=== PATIENT | male | born 1975 | race Caucasian/White ===

== ENCOUNTER 2020-08-20 10:34 | Outpatient (REF) | payer BC, SELFPAY ==
[2020-08-20 11:47] LABS: Alanine Aminotransferase 33 U/L (0-40); Albumin Level 4.8 g/dL (3.5-5.0); Alkaline Phosphatase 85 U/L (39-117); Anion Gap 16 (12-20); Aspartate Amino Transferase 20 U/L (5-37); Bilirubin Total 0.5 mg/dL (0.0-1.0); Blood Urea Nitrogen 15 mg/dL (9-16); Calcium 8.9 mg/dL (8.4-10.2); Carbon Dioxide 26 mmol/L (22-29); Chloride 101 mmol/L (96-108); Cholesterol 265 mg/dL; Estimated Glomerular Filt Rate > 60; Glucose Fasting 129 mg/dL (60-99); HDL Cholesterol 43 mg/dL; Potassium 4.5 mmol/l (3.3-5.1); Sodium 138 mmol/L (135-145); Total Protein 7.6 g/dL (6.5-8.0); Triglycerides 459 mg/dL
[2020-08-20 11:55] LABS: TSH reflex Free T4 2.22 mIU/mL (0.32-4.0)
== END 2020-08-20 10:35 | disposition home or self-care (01) ==
LOC: HO.HMGCLDS 10:34
PROVIDERS: PCP Nurse Practitioner Family; Visit Provider Nurse Practitioner Family
DX: Z00.00 Encounter for general adult medical examination without abnormal findings (principal); R73.01 Impaired fasting glucose
CPT/HCPCS: 80053; 80061; 84443

== ENCOUNTER 2020-10-30 12:11 | Outpatient (REF) | payer BC, SELFPAY ==
[2020-10-30 14:34] LABS: Estimated Average Glucose 123 mg/dL; Hemoglobin A1c % 5.9 %
== END 2020-10-30 12:12 | disposition home or self-care (01) ==
LOC: HO.HMGCLDS 12:11
PROVIDERS: PCP Nurse Practitioner Family; Visit Provider Nurse Practitioner Family
DX: R73.01 Impaired fasting glucose (principal)
CPT/HCPCS: 36415; 83036

== ENCOUNTER 2021-02-05 08:38 | Outpatient (REF) | payer BC, SELFPAY ==
[2021-02-05 11:52] LABS: Alanine Aminotransferase 26 U/L (0-40); Albumin Level 4.6 g/dL (3.5-5.0); Alkaline Phosphatase 79 U/L (39-117); Anion Gap 14 (12-20); Aspartate Amino Transferase 17 U/L (5-37); Bilirubin Total 0.7 mg/dL (0.0-1.0); Blood Urea Nitrogen 20 mg/dL (9-16); Calcium 8.8 mg/dL (8.4-10.2); Carbon Dioxide 26 mmol/L (22-29); Chloride 105 mmol/L (96-108); Cholesterol 127 mg/dL; Estimated Glomerular Filt Rate > 60; Glucose Fasting 139 mg/dL (60-99); HDL Cholesterol 34 mg/dL; LDL Cholesterol Calculated 58 mg/dl; Potassium 4.5 mmol/L (3.3-5.1); Sodium 140 mmol/L (135-145); Triglycerides 176 mg/dL
[2021-02-05 12:15] LABS: TSH reflex Free T4 2.08 uIU/mL (0.32-4.0)
== END 2021-02-05 08:39 | disposition home or self-care (01) ==
LOC: HO.HMGCLDS 08:38
PROVIDERS: PCP Nurse Practitioner Family; Visit Provider Nurse Practitioner Family
DX: E78.5 Hyperlipidemia, unspecified (principal); R73.01 Impaired fasting glucose; I25.10 Atherosclerotic heart disease of native coronary artery without angina pectoris
CPT/HCPCS: 36415; 80053; 80061; 84443

== ENCOUNTER 2021-03-07 10:45 | Outpatient (REF) | payer BC, SELFPAY ==
[2021-03-07 15:46] LABS: Estimated Average Glucose 131 mg/dL; Hemoglobin A1c % 6.2 %
== END 2021-03-07 10:46 | disposition home or self-care (01) ==
LOC: HO.HMGCLDS 10:45
PROVIDERS: PCP Nurse Practitioner Family; Visit Provider Nurse Practitioner Family
DX: R73.01 Impaired fasting glucose (principal)
CPT/HCPCS: 36415; 83036

== ENCOUNTER → 2021-05-13 10:09 | Outpatient (BNVA) | payer BC, SELFPAY | PROVIDERS: PCP Nurse Practitioner Family; Referring Provider Nurse Practitioner Family; Visit Provider Nurse Practitioner Family ==

== ENCOUNTER → 2021-05-28 15:48 | Outpatient (REF) | payer BC, SELFPAY | LOC: HO.SL 15:48 | PROVIDERS: PCP Nurse Practitioner Family; Visit Provider Nurse Practitioner Family | DX: G47.33 Obstructive sleep apnea (adult) (pediatric) (principal) | CPT/HCPCS: 95806 ==

== ENCOUNTER → 2021-08-05 21:44 | Outpatient (REF) | payer BC, SELFPAY | LOC: HO.SL 21:44 | PROVIDERS: Visit Provider Nurse Practitioner Family | DX: G47.33 Obstructive sleep apnea (adult) (pediatric) (principal) | CPT/HCPCS: 95811 ==

== ENCOUNTER 2022-01-03 09:09 | Outpatient (REF) | payer BC, SELFPAY ==
[2022-01-03 11:28] LABS: Appearance Urine CLOUDY; Color Urine YELLOW; Glucose Urine UA 250 MG/DL (NEG); Leukocyte Esterase Urine NEG (NEG); Nitrite Urine NEG (NEG); Specific Gravity - Urine >= 1.030 (1.005-1.025); Urine Blood NEG (NEG); Urine Ketones NEG (NEG); Urine Protein NEG (NEG-TRACE)
[2022-01-03 11:36] LABS: Alanine Aminotransferase 40 U/L (0-40); Albumin Level 4.7 g/dL (3.5-5.0); Alkaline Phosphatase 92 U/L (39-117); Anion Gap 15 (12-20); Aspartate Amino Transferase 20 U/L (5-37); Bilirubin Total 0.5 mg/dL (0.0-1.0); Blood Urea Nitrogen 18 mg/dL (9-16); Calcium 9.6 mg/dL (8.4-10.2); Carbon Dioxide 25 mmol/L (22-29); Chloride 104 mmol/L (96-108); Cholesterol 185 mg/dL; Estimated Glomerular Filt Rate > 60; Glucose Fasting 147 mg/dL (60-99); HDL Cholesterol 42 mg/dL; LDL Cholesterol Calculated 115 mg/dl; Potassium 4.8 mmol/L (3.3-5.1); Sodium 139 mmol/L (135-145); Total Protein 7.7 g/dL (6.5-8.0); Triglycerides 141 mg/dL
[2022-01-03 11:46] LABS: TSH reflex Free T4 3.45 uIU/mL (0.32-4.0)
[2022-01-08 19:30] LABS: Testosterone, Free 61.7 pg/mL (35.0-155.0); Testosterone, Total 215 ng/dL (250-1100)
== END 2022-01-03 09:10 | disposition home or self-care (01) ==
LOC: HO.HMGCLDS 09:09
PROVIDERS: Visit Provider Nurse Practitioner Family
DX: Z00.00 Encounter for general adult medical examination without abnormal findings (principal); N52.9 Male erectile dysfunction, unspecified
CPT/HCPCS: 36415; 80053; 80061; 81003; 84402; 84403; 84443

== ENCOUNTER 2022-04-16 06:15 | Outpatient (REF) | payer BC, SELFPAY ==
[2022-04-16 11:38] LABS: Estimated Average Glucose 126 mg/dL
[2022-04-16 12:12] LABS: Cholesterol 146 mg/dL; HDL Cholesterol 37 mg/dL; LDL Cholesterol Calculated 53 mg/dl; Triglycerides 284 mg/dL
== END 2022-04-16 06:16 | disposition home or self-care (01) ==
LOC: HO.HMGCLDS 06:15
PROVIDERS: PCP Nurse Practitioner Family; Visit Provider Nurse Practitioner Family
DX: E11.9 Type 2 diabetes mellitus without complications (principal)
CPT/HCPCS: 36415; 80061; 83036

== ENCOUNTER 2022-06-18 06:20 | Outpatient (REF) | payer BC, SELFPAY ==
[2022-06-20 07:06] LABS: Follicle Stimulating Hormone 3.8 mIU/mL (1.6-8.0); Lutenizing Hormone 2.5 mIU/mL (1.5-9.3)
[2022-06-28 12:42] LABS: Testosterone, Total 246 ng/dL (250-1100)
== END 2022-06-18 06:21 | disposition home or self-care (01) ==
LOC: HO.HMGCLDS 06:20
PROVIDERS: PCP Nurse Practitioner Family; Visit Provider Urology
DX: E29.1 Testicular hypofunction (principal); R79.89 Other specified abnormal findings of blood chemistry
CPT/HCPCS: 36415; 83001; 83002; 84402; 84403

== ENCOUNTER 2022-08-28 06:10 | Outpatient (REF) | payer BC, SELFPAY ==
[2022-08-28 12:02] LABS: Estimated Average Glucose 128 mg/dL; Hemoglobin A1c % 6.1 %
[2022-09-04 15:45] LABS: Testosterone, Free 56.9 pg/mL (35.0-155.0); Testosterone, Total 201 ng/dL (250-1100)
== END 2022-08-28 06:11 | disposition home or self-care (01) ==
LOC: HO.HMGCLDS 06:10
PROVIDERS: PCP Nurse Practitioner Family; Visit Provider Urology
DX: E29.1 Testicular hypofunction (principal); R79.89 Other specified abnormal findings of blood chemistry; E11.9 Type 2 diabetes mellitus without complications
CPT/HCPCS: 36415; 83036; 84402; 84403

== ENCOUNTER → 2022-09-01 11:13 | Outpatient (BNVA) | payer BC, SELFPAY | PROVIDERS: PCP Nurse Practitioner Family; Visit Provider Urology | DX: Z13.89 Encounter for screening for other disorder (principal) ==

== ENCOUNTER 2023-01-20 06:12 | Outpatient (REF) | payer BC, SELFPAY ==
[2023-01-20 11:10] LABS: MANUAL DIFF FLAG NO
[2023-01-20 11:23] LABS: Appearance Urine Turbid; Color Urine Yellow; Glucose Urine UA Negative (Negative); Leukocyte Esterase Urine Trace (Negative); Nitrite Urine Negative (Negative); PH 5.5 (5.0-9.0); Specific Gravity - Urine 1.025 (1.005-1.025); UMIC TRIGGER UACC YES; Urine Blood Negative (Negative); Urine Ketones Negative (Negative); Urine Protein Trace mg/dL (Neg-Trace)
[2023-01-20 11:35] LABS: Basophils Percent Auto 0.3 % (0-2); Eosinophils Absolute Auto 0.1 X10*3/uL (0.0-0.4); Eosinophils Percent Auto 1.3 % (0-4); Hemoglobin 15.1 g/dl (14.0-18.0); Imm Gran Abs Auto 0.04 X10*3/uL (0.00-0.03); Imm Gran Pct Auto 0.5 % (0.0-0.4); Lymphocytes Percent Auto 34.8 % (20-40); Mean Corpuscular HGB Conc 32.8 g/dl (31.0-36.0); Mean Corpuscular Hemoglobin 32.1 pg (27.0-33.0); Mean Corpuscular Volume 97.7 fL (80.0-98.0); Monocytes Absolute Auto 0.6 X10*3/uL (0.1-1.2); Monocytes Percent Auto 6.7 % (2-11); Neutrophils Absolute Auto 4.9 x10*3/uL (2.0-8.3); Neutrophils Percent Auto 56.4 % (45-73); Platelet Count 232 X10*3/uL (160-400); Red Blood Count 4.71 X10*6/uL (4.60-5.80); White Blood Count 8.6 X10*3/uL (4.8-10.8)
[2023-01-20 11:42] LABS: Bacteria Urine None Seen (None Seen); Calcium Oxalate Crystals Urine Present; Hyaline Casts Urine 0-2 /LPF (0-2); Squamous Epithelial Cell Urine 0-2 /HPF (0-2); WBC Urine 0-5 /HPF (0-5)
[2023-01-20 11:46] LABS: Alanine Aminotransferase 32 U/L (0-40); Albumin Level 4.3 g/dL (3.5-5.0); Alkaline Phosphatase 84 U/L (39-117); Anion Gap 16 (12-20); Aspartate Amino Transferase 17 U/L (5-37); Blood Urea Nitrogen 17 mg/dL (9-16); Calcium 9.2 mg/dL (8.4-10.2); Carbon Dioxide 24 mmol/L (22-29); Chloride 105 mmol/L (96-108); Cholesterol 186 mg/dL; Estimated Glomerular Filt Rate > 60; Glucose Fasting 150 mg/dL (60-99); HDL Cholesterol 41 mg/dL; LDL Cholesterol Calculated 91 mg/dl; Potassium 4.4 mmol/L (3.3-5.1); Sodium 141 mmol/L (135-145); Total Protein 6.8 g/dL (6.5-8.0); Triglycerides 270 mg/dL
[2023-01-20 12:04] LABS: TSH reflex Free T4 2.31 uIU/mL (0.32-4.0)
[2023-01-20 12:05] LABS: Creatinine Urine 215.11 mg/dL; Microalbum/Creatinine Ratio Ur 22.7 ug/mg cr
[2023-01-27 15:42] LABS: Testosterone, Free 57.7 pg/mL (35.0-155.0); Testosterone, Total 228 ng/dL (250-1100)
== END 2023-01-20 06:13 | disposition home or self-care (01) ==
LOC: HO.HMGCLDS 06:12
PROVIDERS: Absent Provider Urology; PCP Nurse Practitioner Family; Visit Provider Nurse Practitioner Family
DX: Z00.00 Encounter for general adult medical examination without abnormal findings (principal); E11.69 Type 2 diabetes mellitus with other specified complication; N52.1 Erectile dysfunction due to diseases classified elsewhere; R79.89 Other specified abnormal findings of blood chemistry
CPT/HCPCS: 36415; 80053; 80061; 81001; 82043; 84402; 84403; 84443; 85025

== ENCOUNTER → 2023-01-29 10:56 | Outpatient (BNVA) | payer BC, SELFPAY | PROVIDERS: PCP Nurse Practitioner Family; Visit Provider Urology ==

== ENCOUNTER 2023-03-03 15:36 | Outpatient (AMB) | payer BC, SELFPAY ==
--- NOTE | 2023-03-03 15:53 | A.OFFPC_ITS ---
Vital Signs 03/03/23 15:54 Height 5 ft 7 in Weight 197 lb 4 oz BMI 30.9 BP 108/72 Blood Pressure Location Rt brachial Position Sitting Pulse 73 Pulse Source Pulse Oximeter Pulse Oximetry (%) 95 Oxygen Delivery Method Room Air Intake Visit Reasons: 6 month follow up Allergies No Known Allergies Allergy (Verified 03/03/23 15:56) Medication List - Last Reconciled 03/03/23 by SASHA Mott- aspirin 81 mg PO DAILY bisacodyl (Dulcolax (bisacodyl)) 10 mg (2 x 5 mg) PO ONCE 1 day blood sugar diagnostic (MD InsiderTouch Ultra Test strips) Check blood sugar fasting in the morning and one other time during the day. blood-glucose meter (MD InsiderTouch Ultra2 Meter) Check blood sugar fasting in the morning and one other time during the day. icosapent ethyl (Vascepa) 2 grams (2 x 1 gram) PO BID 90 days isosorbide mononitrate ER 30 mg PO DAILY 90 days lancets Check blood sugar fasting in the morning and one other time during the day. lisinopril 2.5 mg PO DAILY 90 days metformin ER 500 mg PO DAILY metoprolol tartrate 50 mg PO BID 90 days multivitamin (Daily Multi-Vitamin tablet) 1 tab PO DAILY polyethylene glycol 3350 (Miralax) 238 grams PO ONCE rosuvastatin 40 mg PO DAILY 90 days tadalafil (Cialis) 5 mg PO DAILY 90 days Tobacco use date assessed: 03/03/23 Dental Screening Dental Screen Date: 03/03/23 Did you have a dental visit in the last 12 months?: Yes Did you have a dental problem in the last 6 months where you did not have access to dental care?: No Was dental information given to patient?: Patient has dentist HPI 6 month follow up HPI Details Pt is a diabetic, on an JEREMIAH and a statin. A1c in office today is 5.7. Microalbumin is up to date. Denies polyuria, polydipsia, and neuropathy. Pt denies any signs and symptoms of hypoglycemia and does know how to correct it. Pt's microalbumin was slightly elevated, will refer to nephrology. Pt's blood pressure is lower so I will not increase his lisinopril. Pt c/o left foot pain, i fell . Will order xr. reports full ROM of foot/ankle. colon screen is scheduled [facility] Medical History (Updated 03/03/23 @ 16:30 by SUZY Mott) Anxiety CAD (coronary artery disease) Diabetes Dyslipidemia Surgical History H/O heart artery stent History of eye surgery Stented coronary artery Family History Father CVD (cardiovascular disease) Cancer of prostate Mother CVD (cardiovascular disease) Breast cancer Brother Testicular cancer Paternal Uncle Substance use disorder Social History Housing: House Alcohol intake: current Alcohol intake frequency: a few times a month Patient Tobacco Use Status: Current everyday Tobacco user Cigarettes Per Day: 10 e-Cigarette/Vaping Use: Never Used Second Hand Smoke Exposure: No service: No Current occupational status: employed Current occupation: [employer] Current occupational exposures/hazards: No Cognitive needs: No Hearing needs: No Vision needs: No Questionnaire Thrive Questionnaire Date Thrive assessed: 09/09/22 PATRICK-7 AMB Questionnaire PATRICK-7 Date PATRICK - 7 assessed: 09/09/22 Source: Developed by Drs. Ivan Mackey, Marcia Brewer, Niranjan Herbert and colleagues, with an educational margarito from [employer]. Review of Systems Const Reports as per HPI Physical exam (Primary Care) Vital Signs: Last Vital Signs Pulse 73 03/03/23 15:54 BP 108/72 03/03/23 15:54 Pulse Ox 95 03/03/23 15:54 Oxygen Delivery Method Room Air 03/03/23 15:54 BMI result Body Mass Index 30.9 Tobacco/Smoking Status: Tobacco use Status Tobacco use date assessed 03/03/23 03/03/23 15:58 Patient Tobacco Use Status Current everyday Tobacco 03/03/23 15:53 e-Cigarette/Vaping Use Never Used 03/03/23 15:53 Thrive Assessment: Date of Thrive Assessment Date Thrive assessed 09/09/22 03/03/23 15:53 Const General: cooperative Nutritional Appearance: obese Orientation/consciousness: patient oriented x3 Resp Effort & Inspection: normal respiratory effort Auscultation: clear to auscultation bilaterally Cardio Rate: regular rate Rhythm: regular rhythm Heart sounds: S1 normal heart sound present and S2 normal heart sound present Neuro General: patient oriented x3 Extrem Other: bilat feet: + sensation with use of monofilament. faint erythema noted to dorsal left foot. no pain with eversion, inversion, dorsi flexion-plantar flexion against resistance Psych Appearance: grossly normal Mental Status: mental status grossly normal Speech and movement: Normal speech and movement present Affect: normal affect Attitude: cooperative Thought process: Normal thought process present Thought content: Normal thought content present Insight: Good insight present (Psych) Judgement: Good judgement present (Psych) Results AMB Hemoglobin A1c AMB Hemoglobin A1c 5.7 % Last Edit by Ceci Álvarez CMA on 03/03/23 16: 27 Results Reviewed Results Reviewed: Laboratory Last Values Hgb A1c (Clinic) 5.7 % (4.0-6.0) 03/03/23 16:27 Assessment and Plan Assessment & Plan (1) Left foot pain: Code(s): M79.672 - Pain in left foot Plan: XR ordered (2) Microalbuminuria: Code(s): R80.9 - Proteinuria, unspecified Plan: Referred to nephrology (3) Diabetes: Code(s): E11.9 - Type 2 diabetes mellitus without complications (4) Physical exam: Code(s): Z00.00 - Encounter for general adult medical examination without abnormal findings Plan The patient agreed to the use of a medical billing associate for this encounter. Scribed for CLARI Butt by Anna Bustamante medical billing associate, on 03/03/2023 at 16:05 EST. Orders: Orders XR foot LT 2V Today M79.672 - Pain in left foot Complete Blood Count Auto Diff Today E11.9 - Type 2 diabetes mellitus without complications, Z00.00 - Encounter for general adult medical examination without abnormal findings Comprehensive [place]. Panel Fast Today E11.9 - Type 2 diabetes mellitus without complications, Z00.00 - Encounter for general adult medical examination without abnormal findings TSH reflex Free T4 Today E11.9 - Type 2 diabetes mellitus without complications, Z00.00 - Encounter for general adult medical examination without abnormal findings UA CC w/rflx Micro + Cult Today E11.9 - Type 2 diabetes mellitus without complications, Z00.00 - Encounter for general adult medical examination without abnormal findings Lipid Panel Today E11.9 - Type 2 diabetes mellitus without complications, Z00.00 - Encounter for general adult medical examination without abnormal findings Hemoglobin A1c Today E11.9 - Type 2 diabetes mellitus without complications, Z00.00 - Encounter for general adult medical examination without abnormal findings AMB Hemoglobin A1c Today E11.9 - Type 2 diabetes mellitus without complications, R80.9 - Proteinuria, unspecified Referrals Nephrology Referral R80.9 - Proteinuria, unspecified Medications: New fenofibrate 120 mg PO DAILY 90 tabs 0RF Coding Level of Care Code Est Pt Level 3 (10609) Diagnoses Left foot pain M79.672 Microalbuminuria R80.9 Diabetes E11.9 Physical exam Z00.00
[2023-03-03 15:54] VITALS: BP 108/72; PULSE 73; O2SAT 95; BMI 30.9
== END 2023-03-03 16:34 | disposition home or self-care (01) ==
PROVIDERS: Visit Provider Nurse Practitioner Family
DX: M79.672 Pain in left foot (principal); R80.9 Proteinuria, unspecified; E11.9 Type 2 diabetes mellitus without complications; Z00.00 Encounter for general adult medical examination without abnormal findings
CPT/HCPCS: 83036; 99213

== ENCOUNTER 2023-03-15 08:29 | Day surgery (SDC) | payer BC, SELFPAY ==
--- NOTE | 2023-03-12 13:40 | HO.ANESPROP2 ---
Documented by User: Frannie Rust NP 03/12/23 13:47 HPI - Anesthesia Eval Consult details Narrative: 47yo M for Colonoscopy Cardiac optimized (CAD with stent 2018) [facility] Active Problems Active Problems: All Active Problems (Updated 03/03/23 @ 16:30 by SASHA MottLORE) Diabetes (Acute) Microalbuminuria (Acute) Left foot pain (Acute) Screening for colon cancer (Acute) Low testosterone (Acute) Newly diagnosed diabetes (Acute) Erectile dysfunction (Acute) Severe obstructive sleep apnea (Acute) Sleep disorder (Acute) Elevated fasting blood sugar (Acute) Dyslipidemia (Acute) CAD (coronary artery disease) (Acute) Sleep apnea (Acute) Elevated fasting blood sugar (Acute) Physical exam (Acute) Past Medical History Medical History (Updated 03/03/23 @ 16:30 by SUZY Mott) Anxiety CAD (coronary artery disease) Diabetes Dyslipidemia Family History Family History Father CVD (cardiovascular disease) Cancer of prostate Mother CVD (cardiovascular disease) Breast cancer Brother Testicular cancer Paternal Uncle Substance use disorder Surgical History Surgical History H/O heart artery stent History of eye surgery Stented coronary artery Social History Social History Housing: House Alcohol intake: current Alcohol intake frequency: a few times a month Patient Tobacco Use Status: Current everyday Tobacco user Cigarettes Per Day: 10 e-Cigarette/Vaping Use: Never Used Second Hand Smoke Exposure: No Advance Directives: No Advance Directives Information Provided: Yes service: No Current occupational status: employed Current occupation: [employer] Current occupational exposures/hazards: No Cognitive needs: No Hearing needs: No Vision needs: No Meds Allergies Allergy/AdvReac Type Severity Reaction Status Date / Time No Known Allergies Allergy Verified 03/03/23 15:56 Home Medications Medication Instructions Recorded Confirmed Last Taken Type aspirin 81 mg tablet,delayed 81 mg PO DAILY 07/31/20 03/03/23 Unknown History release multivitamin (Daily Multi-Vitamin 1 tab PO DAILY 01/26/22 03/03/23 Unknown History tablet) Exam Exam Date and Time: March 12, 2023 1340 Pertinent Lab Results Pertinent Lab Results: Laboratory Tests 01/20/23 01/20/23 06:37 06:37 WBC 8.6 Hgb 15.1 Hct 46.0 Plt Count 232 Sodium 141 Potassium 4.4 Chloride 105 Carbon Dioxide 24 BUN 17 H Creatinine 0.78 Assessment and Plan Assessment Anesthesia Assessment: Chart Reviewed Documented by User: Peter Kothari MD 03/15/23 09:45 [facility] Past Medical History Medical History (Updated 03/03/23 @ 16:30 by SUZY Mott) Anxiety CAD (coronary artery disease) Diabetes Dyslipidemia Family History Family History Father CVD (cardiovascular disease) Cancer of prostate Mother CVD (cardiovascular disease) Breast cancer Brother Testicular cancer Paternal Uncle Substance use disorder Family history of problems with anesthesia: No Surgical History Surgical History H/O heart artery stent History of eye surgery Stented coronary artery History of Problems with Anesthesia: No Social History Social History Housing: House Alcohol intake: current Alcohol intake frequency: a few times a month Patient Tobacco Use Status: Current everyday Tobacco user Cigarettes Per Day: 10 e-Cigarette/Vaping Use: Never Used Second Hand Smoke Exposure: No Advance Directives: No Advance Directives Information Provided: Yes service: No Current occupational status: employed Current occupation: [employer] Current occupational exposures/hazards: No Cognitive needs: No Hearing needs: No Vision needs: No Meds Allergies Allergy/AdvReac Type Severity Reaction Status Date / Time No Known Allergies Allergy Verified 03/03/23 15:56 Home Medications Medication Instructions Recorded Confirmed Last Taken Type aspirin 81 mg tablet,delayed 81 mg PO DAILY 07/31/20 03/03/23 Unknown History release multivitamin (Daily Multi-Vitamin 1 tab PO DAILY 01/26/22 03/03/23 Unknown History tablet) Exam Airway Mallampati Class: III TM Dist: >3cm Neck ROM: Limited Heart: rrr Lungs: cta Assessment and Plan Assessment Anesthesia Assessment: Anesthesia Plan Discussed Final Anesthetic Review Family History of Problems with Anesthesia: No History of Problems with Anesthesia: No NPO: Yes ASA Class: III Final Preanesthetic Review: No Changes in Pt Med Stat, Meds/Allgs Chart Reviewed, Consent Obtained/Reviewed and Anes Risks/Benef Reviewed Patient Risk: Intermediate Anesthetic Plan Anesthetic Plan: MAC: and Agree w/ Assess. and Plan Disposition: Standard PACU
--- NOTE | 2023-03-15 10:22 | MHC.SHP ---
Pre-Procedural Eval Section A Date of Service: 03/15/23 The patient is an INPATIENT: No The History & Physical has been completed within 30 days and I have reviewed it.: No Section B Chief Complaint: Screening Relevant Family History (Specify if Yes): No Relevant Social History: Tobacco Use Present Medications: see Short Stay Collaborative assessment Medical History: Significant History (Anxiety CAD (coronary artery disease) Dyslipidemia) History of Previous Operations: Relevant previous surgery/procedure and date(s) (H/O heart artery stent History of eye surgery Stented coronary artery) Allergies: Allergies Allergy/AdvReac Type Severity Reaction Status Date / Time No Known Allergies Allergy Verified 03/03/23 15:56 Review of Systems Sugical H&P ROS: Negative: Constitution, Cardiovascular, Respiratory and Gastrointestinal Exam Surgical H&P Exam: Normal: Heart, Normal: Lungs, Normal: Extremities and Normal: Abdomen Plan Diagnosis/Plan: Unchanged I have reviewed the history and physical and performed a pertinent physical examination on my patient. No changes have occurred unless specified. Time Spent With Patient Time: Total time managing care of this patient today ____ minutes.
[2023-03-15 10:35] VITALS: BMI 30.5
[2023-03-15 10:48] VITALS: BP 108/70; PULSE 63; RESP 16; TEMP 36.6; O2SAT 96
[2023-03-15] MEDS: Lactated Ringers 1,000 ML 100 ML IVCONT (10:59)
--- NOTE | 2023-03-15 11:11 | P.OP_ITS ---
Operative Note Operative Note Date of Service: 03/15/23 Narrative: COLONOSCOPY TILL CECUM WITH BIOPSIES Pre-op diagnosis: colon cancer screening (1st colonoscopy) Post-op diagnosis:? colon polyps, diverticulosis, hemorrhoids Endoscopist:? Laurel Yates MD Anesthesia:?MAC Consent: Indications for the procedure and potential complications of bleeding, perforation, reaction to medications and missed diagnosis were discussed with the patient and informed consent was obtained. Instrument: Olympus PCF H 190 L variable stiffness pediatric colonoscope Monitoring: Vital signs and clinical assessment, intermittent blood pressure monitoring, continuous EKG monitoring, Pulse oximetry and Carbon Dioxide monitoring were done throughout the procedure. Please see anesthesia flowsheet. Colon withdrawl time was 11 minutes. Procedure: The patient was placed in the left lateral decubitis position and pre-procedure medications were administered. After a digital rectal examination of the ano-rectum, the video colonoscope was inserted into the rectum and advanced through the colon to the cecum. The colonoscope was slowly withdrawn in a retrograde panoramic fashion and the colon mucosa was carefully examined including a retroflexed view of the rectum. Findings and interventions are described below. Procedure Difficulty: Without difficulty Findings: Terminal Ileum: Not evaluated Cecum: Normal Ascending Colon: Normal Transverse Colon: Normal Descending Colon: Moderate diverticulosis Sigmoid Colon: Moderate diverticulosis Rectum: Two 3-4 mm diminutive appearing polyps - biopsied Ano-rectum: Small internal hemorrhoids Colon preparation: Excellent Impression and Post Procedure Diagnosis: Colonoscopy Findings: Two diminutive appearing polyps - biopsied Moderate diverticulosis seen in the left colon Small hemorrhoids on retroflexed exam. Plan: Await pathology results Patient has an appointment on 03/29/23 in the GI Clinic with Jennifer Martin FNP- [facility]. Repeat Colonoscopy interval based on path results - in 5 years if polyps are adenomatous and 10 years if polyps are hyperplastic. Above findings were reviewed with the patient and colon polyps and diverticulosis handouts were given in the discharge area
[2023-03-15 11:25] LABS: Glucose, Whole Blood 129 mg/dL (60-115)
[2023-03-15 11:54] VITALS: BP 130/43; PULSE 66; RESP 16; TEMP 36.3; O2SAT 94
[2023-03-15 12:09] VITALS: BP 112/70; PULSE 61; RESP 18; TEMP 36.4; O2SAT 96
== END 2023-03-15 13:07 | disposition home or self-care (01) ==
PROVIDERS: PCP Nurse Practitioner Family; Visit Provider Internal Medicine Gastroenterology
PROC: 0DJD8ZZ Inspection of Lower Intestinal Tract, Via Natural or Artificial Opening Endoscopic (ICD-10-PCS; CPT 45378; principal; 2023-03-15 10:10)
DX: Z12.11 Encounter for screening for malignant neoplasm of colon (principal); K62.1 Rectal polyp; K57.30 Diverticulosis of large intestine without perforation or abscess without bleeding; K64.8 Other hemorrhoids; E11.9 Type 2 diabetes mellitus without complications; E78.5 Hyperlipidemia, unspecified; F17.210 Nicotine dependence, cigarettes, uncomplicated; I25.10 Atherosclerotic heart disease of native coronary artery without angina pectoris; G47.33 Obstructive sleep apnea (adult) (pediatric); Z99.89 Dependence on other enabling machines and devices; Z79.82 Long term (current) use of aspirin; Z80.42 Family history of malignant neoplasm of prostate; Z80.3 Family history of malignant neoplasm of breast; Z80.43 Family history of malignant neoplasm of testis; Z79.899 Other long term (current) drug therapy
CPT/HCPCS: 45380; 82947; 88305

== ENCOUNTER → 2023-03-15 08:29 | Outpatient (BNV) | payer BC, SELFPAY | PROVIDERS: PCP Nurse Practitioner Family; Visit Provider Internal Medicine Gastroenterology | DX: Z12.11 Encounter for screening for malignant neoplasm of colon (principal); D12.8 Benign neoplasm of rectum; K57.90 Diverticulosis of intestine, part unspecified, without perforation or abscess without bleeding; K64.8 Other hemorrhoids | CPT/HCPCS: 45380 ==

== ENCOUNTER 2023-03-29 15:49 | Outpatient (AMB) | payer BC, SELFPAY ==
[2023-03-29 15:59] VITALS: BP 141/81; PULSE 66; BMI 31.1
--- NOTE | 2023-03-29 15:59 | A.OFFVIS_ITS ---
Intake Vital Signs 03/29/23 15:59 Height 5 ft 7 in Weight 198 lb 6.656 oz BMI 31.1 BP 141/81 H Blood Pressure Location Lt brachial Position Sitting Pulse 66 Intake Visit Reasons: s/p colon-[place] Intake Note: Pablito presents in office as est.patient for a post-op for colo pt got it done 03.15.23 PT CC: pt reports having no concerns pt denies any other GI Issues Certified Breastfeeding Educator Required: No Accompanied by: Self / Same As Patient Allergies No Known Allergies Allergy (Verified 03/29/23 16:00) HPI s/p colon-[place] HPI Details LAST VISIT Screening for colon cancer Patient denies any GI, cardiac or respiratory symptoms.? Denies any issues with anesthesia in the past.? Denies any history of sleep apnea.? No history infectious diseases in the past or present.? Patient is on low-dose aspirin. As mentioned above patient has been seen by Cardiology for CAD. History of stent placed in 2018. Patient is asymptomatic currently. However call can be placed to senior java web application developer to clear him for the procedure. Patient recently gained weight and his triglycerides are continuing to be high. His senior java web application developer was Dr. Castillo at [facility]. No family or personal history of colon cancer or polyps.? Patient denies melena, hematochezia, unintentional weight loss or ribbon like stools.? Discussed at length the pre-procedure,? prep, diet & medications as well as what to expect prior, during and after the procedure.?? Stressed the importance of good bowel prep. ?Recommended the use of Vaseline or Calmoseptine OTC & baby wipes with bowel movements to promote comfort.? ?Patient verbalizes understanding and agrees to plan of care.? He was given the opportunity to ask questions and all questions answered.? We will see him after the procedure.? Plan Medications New bisacodyl (Dulcolax (bisacodyl)) take 2 tabs at noon the day before your colonoscopy 10 mg (2 x 5 mg) PO ONCE 2 tabs 0RF 1 day Z12.11 polyethylene glycol 3350 (Miralax) As directed by gastroenterology department at [facility] 238 grams PO ONCE 238 grams 0RF Z12.11 COLONOSCOPY Findings: Terminal Ileum: Not evaluated Cecum:? Normal Ascending Colon:? Normal Transverse Colon:? Normal Descending Colon:? Moderate diverticulosis Sigmoid Colon:? Moderate diverticulosis Rectum:? Two 3-4 mm diminutive appearing polyps - biopsied Ano-rectum:? Small internal hemorrhoids Colon preparation: Excellent? Impression and Post Procedure Diagnosis: Colonoscopy Findings: Two diminutive appearing polyps - biopsied Moderate diverticulosis seen in the left colon Small hemorrhoids on retroflexed exam. Plan: Await pathology results Repeat Colonoscopy interval based on path results - in 5 years if polyps are adenomatous and 10 years if polyps are hyperplastic. Above findings were reviewed with the patient and colon polyps and diverticulosis handouts were given in the discharge area PATHOLOGY RESULTS Diagnosis Colon, rectal polyp:? Hyperplastic polyp. TODAY'S VISIT Patient is here today for follow-up and to discuss colonoscopy results. Patient denies any ill effects from the prep, anesthesia or procedure itself. Patient denies any GI concerning symptoms. States that he is moving his bowels well without any issues. Denies melena, hematochezia, unintentional weight loss or ribbon like stools. Patient was on diagnosed with moderate diverticulosis to left colon. Hyperplastic polyps found in his rectum. Colonoscopy recommended 7-10 years. [facility] Medical History (Updated 03/29/23 @ 21:11 by Jennifer Martin [facility]) Anxiety CAD (coronary artery disease) Diabetes Diverticulosis Dyslipidemia Surgical History H/O heart artery stent History of eye surgery Hx of colonoscopy Stented coronary artery Family History Father CVD (cardiovascular disease) Cancer of prostate Mother CVD (cardiovascular disease) Breast cancer Brother Testicular cancer Paternal Uncle Substance use disorder Social History Housing: House Alcohol intake: current Alcohol intake frequency: a few times a month Patient Tobacco Use Status: Current everyday Tobacco user Tobacco use type: Cigarette Cigarettes Per Day: 10 e-Cigarette/Vaping Use: Never Used Second Hand Smoke Exposure: No service: No Current occupational status: employed Current occupation: [employer] Current occupational exposures/hazards: No Cognitive needs: No Hearing needs: No Vision needs: No Review of Systems Const Denies weight gain and Denies weight loss ENT Reports no additional complaints, Denies dysphagia and Denies odynophagia Card Reports no additional complaints Resp Reports no additional complaints GI Denies abdominal pain, Denies belching, Denies melena, Denies bloating, Denies change in bowel habits, Denies dysphagia, Denies excessive flatus, Denies dyspepsia, Denies heartburn, Denies diarrhea, Denies loose stools, Denies nausea, Denies odynophagia and Denies vomiting Reports no additional complaints Musc Reports no additional complaints Neuro Reports no additional complaints Psych Reports no additional complaints Endo Reports no additional complaints Physical Exam Vital Signs: Last Vital Signs Pulse 66 03/29/23 15:59 BP 141/81 H 03/29/23 15:59 BMI result Body Mass Index 31.1 Const General: healthy appearing, no acute distress and well developed Nutritional Appearance: obese Orientation/consciousness: patient oriented x3 HEENT Head: Yes normal to inspection, Yes normocephalic and Yes atraumatic Face and sinus: Yes normal facial exam Mouth: Normal oral and palatal mucosa present Throat: Yes posterior oropharynx normal, Yes tonsils normal and Yes uvula midline Eyes General: appearance normal, both eyes and all related structures Neck Neck: Yes normal visual inspection, Yes full ROM and Yes trachea midline Thyroid: Thyroid normal Resp Effort & Inspection: normal respiratory effort, able to speak in complete sentences, no tracheal deviation and symmetric chest movement Auscultation: clear to auscultation bilaterally Cardio Rate: regular rate Heart sounds: S1 normal heart sound present and S2 normal heart sound present GI Inspection: Yes normal to inspection, No distended and Yes obesity Palpation (GI): Soft to palpation, not firm, nontender and No hepatosplenomegaly present Auscultation: normal bowel sounds General: Yes no CVA tenderness Back/Spine/Pelvis Back: no CVA tenderness Skin General skin exam: elasticity normal, turgor normal and dry skin Neuro General: patient oriented x3 Psych Appearance: grossly normal Mental Status: mental status grossly normal Speech and movement: Normal speech and movement present Affect: normal affect Assessment & Plan Assessment & Plan (1) Diverticulosis: Code(s): K57.90 - Diverticulosis of intestine, part unspecified, without perforation or abscess without bleeding Plan: Moderate diverticulosis found in the left side of his colon. Discussed with patient high-fiber diet. Information about diverticulosis and high-fiber diet given to patient. (2) Status post colonoscopy: Code(s): Z98.890 - Other specified postprocedural states Plan: Colorectal screening in 7-10 years in asymptomatic adult, earlier if clinically necessary. He will follow-up with our office on as needed basis. Patient was encouraged to call our office if he will have any GI concerning symptoms. Patient is agreeable to this plan and verbalizes understanding of instructions. He was given the opportunity to ask questions and all questions answered. Thank you for allowing me to participate in his care Coding Level of Care Code Est Pt Level 3 (37664) Diagnoses Diverticulosis K57.90 Status post colonoscopy Z98.890 Time Spent (min) 30 Comment 20 minutes spent with patient and additional 10 minutes spent reviewing his records
== END 2023-03-29 16:20 | disposition home or self-care (01) ==
PROVIDERS: PCP Nurse Practitioner Family; Visit Provider Nurse Practitioner Family
DX: K57.90 Diverticulosis of intestine, part unspecified, without perforation or abscess without bleeding (principal); Z98.890 Other specified postprocedural states
CPT/HCPCS: 99213

== ENCOUNTER → 2023-03-29 15:49 | Outpatient (BNVA) | payer BC, SELFPAY | PROVIDERS: PCP Nurse Practitioner Family; Visit Provider Nurse Practitioner Family ==

== ENCOUNTER 2023-04-22 10:52 | Outpatient (AMB) | payer BC, SELFPAY ==
[2023-04-22 10:55] VITALS: BP 126/70; PULSE 82; TEMP 36.8; O2SAT 95; BMI 30.7
--- NOTE | 2023-04-22 10:55 | AM.OFFWIN_ITS ---
Intake Vital Signs 04/22/23 10:55 Height 5 ft 7 in Weight 196 lb BMI 30.7 BP 126/70 Blood Pressure Location Rt brachial Position Sitting Pulse 82 Pulse Source Pulse Oximeter Temp 98.3 F Temp Source Temporal Artery Scan Pulse Oximetry (%) 95 Oxygen Delivery Method Room Air Intake Visit Reasons: EP Lt side rib pain Intake Note: Pt is here c/o left side rib pain for the last three weeks. Patient Tobacco Use Status: Current everyday Tobacco user Allergies No Known Allergies Allergy (Verified 04/22/23 10:55) Do you need a note to return to daycare/school/sports/work: No HPI HPI Comments History of Present Illness Details 47-year-old male history of cardiac stent the presents for left upper quadrant pain shoulder pain and neck pain. Patient states that for the past 3 weeks he has had pain Dwain the upper left part of his chest that radiates up to the shoulder into the neck intermittently. Its brought on by anything particular and goes away by itself. the pain is different from his cardiac pain that he had with his stent. Since its inception he has also had an echo and seen his elementary math tutor was not concerning. Denies any numbness and tingling his pain is described as a dull ache he also endorses some hotness in the face. Denies nausea vomiting is having normal bowel movements. His only recent changes in medications fenofibrate [facility] Medical History (Updated 03/29/23 @ 21:11 by Jennifer Martin [facility]) Anxiety CAD (coronary artery disease) Diabetes Diverticulosis Dyslipidemia Surgical History H/O heart artery stent History of eye surgery Hx of colonoscopy Stented coronary artery Family History Father CVD (cardiovascular disease) Cancer of prostate Mother CVD (cardiovascular disease) Breast cancer Brother Testicular cancer Paternal Uncle Substance use disorder Social History Housing: House Alcohol intake: current Alcohol intake frequency: a few times a month Patient Tobacco Use Status: Current everyday Tobacco user Tobacco use type: Cigarette Cigarettes Per Day: 10 e-Cigarette/Vaping Use: Never Used Second Hand Smoke Exposure: No service: No Current occupational status: employed Current occupation: [employer] Current occupational exposures/hazards: No Cognitive needs: No Hearing needs: No Vision needs: No Review of Systems Const All systems reviewed & are unremarkable except as noted in HPI and below Denies fever(s), Denies headache(s) and Denies weakness Eyes Reports no additional complaints ENT Reports no additional complaints, Denies headache(s) and Reports neck pain Card Reports no additional complaints, Denies chest pain, Denies leg edema and Denies dyspnea Resp Denies cough and Denies dyspnea GI Denies abdominal pain, Denies nausea and Denies vomiting Denies dysuria and Denies urinary frequency Musc Reports arthralgias and Reports neck pain Neuro Denies headache(s) and Denies weakness Psych Reports no additional complaints Endo Reports no additional complaints Physical Exam Vital Signs: Last Vital Signs Temp 98.3 F 04/22/23 10:55 Pulse 82 04/22/23 10:55 BP 126/70 04/22/23 10:55 Pulse Ox 95 04/22/23 10:55 Oxygen Delivery Method Room Air 04/22/23 10:55 BMI result Body Mass Index 30.7 Const General: cooperative, no acute distress and alert Orientation/consciousness: patient oriented x3 Limitations: no limitations HEENT Head: Yes normal to inspection Ears: hearing grossly normal bilaterally and external ears normal General nose exam: Normal external nose present Eyes General: appearance normal, both eyes and all related structures Neck Neck: Yes normal visual inspection Chest Chest palpation & inspection: normal inspection of the chest Resp Effort & Inspection: normal respiratory effort, able to speak in complete sentences and no audible wheezes Auscultation: clear to auscultation bilaterally Cardio Rate: regular rate Rhythm: regular rhythm GI Inspection: Yes normal to inspection Palpation (GI): Soft to palpation and nontender Skin General skin exam: no rashes or lesions noted Neuro General: patient oriented x3 Psych Appearance: grossly normal Mental Status: mental status grossly normal Speech and movement: Normal speech and movement present Affect: normal affect Attitude: cooperative Thought process: Normal thought process present Thought content: Normal thought content present Assessment & Plan Assessment & Plan (1) Rib pain on left side: Code(s): R07.81 - Pleurodynia Plan VSS. On exam patient presents alert and oriented no acute distress exam of eyes unremarkable note above. Given patient presentation of consideration with ACS given normal echo in clear report from elementary math tutor's most recent a week ago low concern. Musculoskeletal is on the differential as well as gas pain or nerve injury however no reports of overuse. Recommend patient continue with symptomatic treatment monitor his symptoms use a diary if necessary in Reach out to his PCP. Discharge instructions, follow up and treatment are discussed with patient in my usual fashion. Alternatives in treatment are also discussed. The patient will return for worsening symptoms or as needed. Advised that any labs/imaging ordered will be followed up on and contact made if further treatment needed. Counseled that patient's condition may require further evaluation and/or treatment. Symptoms of concern for worsening disorder discussed in detail in my customary manner. Patient does verbalize understanding of the plan, there are no apparent barriers to communication. The patient is given the opportunity to ask questions and have them answered to his/her satisfaction Patient Instructions: if you experience any new or worsening symptoms such as chest pain shortness of breath fever chills nausea vomiting abdominal pain please present to emergency department Coding Level of Care Code Est Pt Level 2 (49755) Diagnoses Rib pain on left side R07.81
== END 2023-04-22 11:19 | disposition home or self-care (01) ==
PROVIDERS: PCP Nurse Practitioner Family; Visit Provider Physician Assistant
DX: R07.81 Pleurodynia (principal)
CPT/HCPCS: 99212

== ENCOUNTER 2023-05-10 14:06 | Outpatient (AMB) | payer BC, SELFPAY ==
[2023-05-10 14:14] VITALS: BP 128/74; PULSE 63; O2SAT 97; BMI 31.5
--- NOTE | 2023-05-10 14:14 | A.OFFPC_ITS ---
Vital Signs 05/10/23 14:14 Height 5 ft 7 in Weight 201 lb BMI 31.5 BP 128/74 Blood Pressure Location Lt brachial Position Sitting Pulse 63 Pulse Source Pulse Oximeter Pulse Oximetry (%) 97 Oxygen Delivery Method Room Air Intake Visit Reasons: med issues Allergies No Known Allergies Allergy (Verified 05/10/23 14:16) Medication List - Last Reconciled 05/10/23 by SUZY Mott aspirin 81 mg PO DAILY blood sugar diagnostic (WTFastTouch Ultra Test strips) Check blood sugar fasting in the morning and one other time during the day. blood-glucose meter (LibriLoopuch Ultra2 Meter) Check blood sugar fasting in the morning and one other time during the day. icosapent ethyl (Vascepa) 2 grams (2 x 1 gram) PO BID 90 days isosorbide mononitrate ER 30 mg PO DAILY 90 days lancets Check blood sugar fasting in the morning and one other time during the day. lisinopril 2.5 mg PO DAILY 90 days metformin ER 500 mg PO DAILY metoprolol tartrate 50 mg PO BID 90 days multivitamin (Daily Multi-Vitamin tablet) 1 tab PO DAILY rosuvastatin 40 mg PO DAILY 90 days tadalafil (Cialis) 5 mg PO DAILY 90 days Tobacco use date assessed: 05/10/23 Dental Screening Dental Screen Date: 05/10/23 Did you have a dental visit in the last 12 months?: Yes Did you have a dental problem in the last 6 months where you did not have access to dental care?: No Was dental information given to patient?: Patient has dentist HPI med issues HPI Details Pt is currently taking fenofibrate 120mg. He reports that since starting this medication he has been experiencing dull pain starting in his shoulders and moving to biceps, abdomen, and ribs. Pt reports that this is different than chest pain he has had from cardiac events. He denies any chest pain, shortness of breath and dizziness. Will do an EKG in office. Will stop fenofibrate. [facility] Medical History Diverticulosis Diabetes Anxiety Dyslipidemia CAD (coronary artery disease) Surgical History Hx of colonoscopy Stented coronary artery History of eye surgery H/O heart artery stent Family History Father CVD (cardiovascular disease) Cancer of prostate Mother CVD (cardiovascular disease) Breast cancer Brother Testicular cancer Paternal Uncle Substance use disorder Social History Housing: House Alcohol intake: current Alcohol intake frequency: a few times a month Patient Tobacco Use Status: Current everyday Tobacco user Tobacco use type: Cigarette Cigarettes Per Day: 10 e-Cigarette/Vaping Use: Never Used Second Hand Smoke Exposure: No service: No Current occupational status: employed Current occupation: [employer] Current occupational exposures/hazards: No Cognitive needs: No Hearing needs: No Vision needs: No Questionnaire Thrive Questionnaire Date Thrive assessed: 09/09/22 PATRICK-7 AMB Questionnaire PATRICK-7 Date PATRICK - 7 assessed: 09/09/22 Source: Developed by Drs. Ivan Mackey, Marcia Brewer, Niranjan Herbert and colleagues, with an educational margarito from [employer]. Review of Systems Const Reports as per HPI Physical exam (Primary Care) Vital Signs: Last Vital Signs Pulse 63 05/10/23 14:14 BP 128/74 05/10/23 14:14 Pulse Ox 97 05/10/23 14:14 Oxygen Delivery Method Room Air 05/10/23 14:14 BMI result Body Mass Index 31.5 Tobacco/Smoking Status: Tobacco use Status Tobacco use date assessed 05/10/23 05/10/23 14:19 Patient Tobacco Use Status Current everyday Tobacco 05/10/23 14:19 Tobacco use type Cigarette 05/10/23 14:19 e-Cigarette/Vaping Use Never Used 05/10/23 14:19 Thrive Assessment: Date of Thrive Assessment Date Thrive assessed 09/09/22 05/10/23 14:19 Const General: cooperative Nutritional Appearance: obese Orientation/consciousness: patient oriented x3 Chest Chest palpation & inspection: normal inspection of the chest Resp Effort & Inspection: normal respiratory effort Auscultation: clear to auscultation bilaterally Neuro General: patient oriented x3 Psych Appearance: grossly normal Mental Status: mental status grossly normal Speech and movement: Normal speech and movement present Affect: normal affect Attitude: cooperative Thought process: Normal thought process present Thought content: Normal thought content present Insight: Good insight present (Psych) Judgement: Good judgement present (Psych) Assessment and Plan Assessment & Plan (1) Muscle pain: Code(s): M79.10 - Myalgia, unspecified site Plan The patient agreed to the use of a medical records secretary for this encounter. Scribed for SUZY Butt by Anna Bustamante medical records secretary, on 05/10/2023 at 14:35 EST. Medications: Discontinued fenofibrate Discontinued Reason: Duplicate 120 mg PO DAILY 90 tabs 0RF Coding Level of Care Code Est Pt Level 3 (32486) Diagnoses Muscle pain M79.10
== END 2023-05-10 16:12 | disposition home or self-care (01) ==
PROVIDERS: PCP Nurse Practitioner Family; Visit Provider Nurse Practitioner Family
DX: M79.10 Myalgia, unspecified site (principal)
CPT/HCPCS: 99213

== ENCOUNTER 2023-06-04 11:35 | Outpatient (REF) | payer BC, SELFPAY ==
[2023-06-04 13:20] LABS: MANUAL DIFF FLAG NO
[2023-06-04 13:41] LABS: Basophils Percent Auto 0.3 % (0-2); Eosinophils Absolute Auto 0.1 X10*3/uL (0.0-0.4); Eosinophils Percent Auto 0.8 % (0-4); Hematocrit 42.9 % (42.0-52.0); Hemoglobin 14.9 g/dl (14.0-18.0); Imm Gran Abs Auto 0.02 X10*3/uL (0.00-0.03); Imm Gran Pct Auto 0.3 % (0.0-0.4); Lymphocytes Absolute Auto 2.2 X10*3/uL (1.2-4.9); Lymphocytes Percent Auto 29.9 % (20-40); Mean Corpuscular HGB Conc 34.7 g/dl (31.0-36.0); Mean Corpuscular Hemoglobin 32.3 pg (27.0-33.0); Mean Corpuscular Volume 93.1 fL (80.0-98.0); Mean Platelet Volume 10.9 fL (9.4-12.4); Monocytes Absolute Auto 0.5 X10*3/uL (0.1-1.2); Monocytes Percent Auto 6.7 % (2-11); Neutrophils Absolute Auto 4.7 x10*3/uL (2.0-8.3); Platelet Count 255 X10*3/uL (160-400); Red Blood Count 4.61 X10*6/uL (4.60-5.80); Red Cell Distribution Width 12.2 % (11.0-16.0); White Blood Count 7.5 X10*3/uL (4.8-10.8)
[2023-06-04 13:44] LABS: Appearance Urine Clear; Color Urine Yellow; Glucose Urine UA Negative (Negative); Leukocyte Esterase Urine Small (1+) (Negative); Nitrite Urine Negative (Negative); PH 6.5 (5.0-9.0); UMIC TRIGGER UACC YES; Urine Blood Negative (Negative); Urine Ketones Negative (Negative); Urine Protein Trace mg/dL (Neg-Trace)
[2023-06-04 13:49] LABS: Bacteria Urine None Seen (None Seen); Hyaline Casts Urine 0-2 /LPF (0-2); RBC Urine 0-2 /HPF (0-2); Squamous Epithelial Cell Urine 0-2 /HPF (0-2); UACC Culture Trigger YES
[2023-06-04 14:27] LABS: Estimated Average Glucose 128 mg/dL; Hemoglobin A1c % 6.1 % (<6.0)
[2023-06-04 14:29] LABS: Estimated Average Glucose 128 mg/dL; Hemoglobin A1c % 6.1 % (<6.0)
[2023-06-04 14:50] LABS: Alanine Aminotransferase 20 U/L (0-40); Albumin Level 4.6 g/dL (3.5-5.0); Alkaline Phosphatase 78 U/L (39-117); Anion Gap 16 (12-20); Aspartate Amino Transferase 13 U/L (5-37); Bilirubin Total 0.8 mg/dL (0.0-1.0); Blood Urea Nitrogen 11 mg/dL (9-16); Calcium 9.2 mg/dL (8.4-10.2); Carbon Dioxide 24 mmol/L (22-29); Chloride 107 mmol/L (96-108); Cholesterol 89 mg/dL (<200); Estimated Glomerular Filt Rate > 60; Glucose Fasting 109 mg/dL (60-99); HDL Cholesterol 35 mg/dL (>40); LDL Cholesterol Calculated 28 mg/dL (<100); Potassium 3.6 mmol/L (3.3-5.1); Sodium 143 mmol/L (135-145); Total Protein 7.2 g/dL (6.5-8.0); Triglycerides 131 mg/dL (<150)
== END 2023-06-04 11:36 | disposition home or self-care (01) ==
LOC: HO.HMGCLDS 11:35
PROVIDERS: Absent Provider Urology; PCP Nurse Practitioner Family; Visit Provider Nurse Practitioner Family
DX: Z00.00 Encounter for general adult medical examination without abnormal findings (principal); R07.9 Chest pain, unspecified; I25.10 Atherosclerotic heart disease of native coronary artery without angina pectoris; E78.5 Hyperlipidemia, unspecified; E11.9 Type 2 diabetes mellitus without complications; R82.90 Unspecified abnormal findings in urine
CPT/HCPCS: 36415; 80053; 80061; 81001; 83036; 84443; 85025; 87086

== ENCOUNTER → 2023-07-28 11:33 | Outpatient (BNVA) | payer BC, SELFPAY | PROVIDERS: PCP Nurse Practitioner Family; Visit Provider Urology ==

== ENCOUNTER 2023-09-13 15:42 | Outpatient (AMB) | payer BC, SELFPAY ==
--- NOTE | 2023-09-13 15:56 | A.OFFPC_ITS ---
Vital Signs 09/13/23 15:57 Height 5 ft 7 in Weight 200 lb BMI 31.3 BP 120/76 Blood Pressure Location Rt brachial Position Sitting Pulse 66 Pulse Source Pulse Oximeter Pulse Oximetry (%) 98 Oxygen Delivery Method Room Air Intake Visit Reasons: Annual PE Intake Note: Patient here for physical exam. Pt would like to talk about on going issue. Allergies No Known Allergies Allergy (Verified 05/10/23 14:16) Medication List - Last Reconciled 09/13/23 by SUZY Mott aspirin 81 mg PO DAILY blood sugar diagnostic (Exponential EntertainmentTouch Ultra Test strips) Check blood sugar fasting in the morning and one other time during the day. blood-glucose meter (Exponential EntertainmentTouch Ultra2 Meter) Check blood sugar fasting in the morning and one other time during the day. ezetimibe 10 mg PO DAILY icosapent ethyl (Vascepa) 2 grams (2 x 1 gram) PO BID 90 days isosorbide mononitrate ER 60 mg PO DAILY lancets Check blood sugar fasting in the morning and one other time during the day. lisinopril 2.5 mg PO DAILY 90 days metformin ER 500 mg PO DAILY metoprolol tartrate 50 mg PO BID 90 days multivitamin (Daily Multi-Vitamin tablet) 1 tab PO DAILY pantoprazole 20 mg PO DAILY 90 days rosuvastatin 40 mg PO DAILY 90 days tadalafil (Cialis) 5 mg PO DAILY 90 days ticagrelor (Brilinta) 60 mg PO BID Tobacco use date assessed: 09/13/23 Dental Screening Dental Screen Date: 09/13/23 Did you have a dental visit in the last 12 months?: Yes Did you have a dental problem in the last 6 months where you did not have access to dental care?: No Was dental information given to patient?: Patient has dentist HPI Annual PE HPI Details Pt is here for a PE. Will order labs. Colon screen is up to date. Pt is a diabetic, on an JEREMIAH and a statin. A1C in office today was not able to result (low hgb), will order a1c, cbc through blood, to be drawn at the lab to assess further. Microalbumin is up to date. Denies polyuria, polydipsia, and neuropathy. Pt denies any signs and symptoms of hypoglycemia and does know how to correct it. Pt has not been checking his blood sugar. Eye exam is up to date according to pt. Pt is following up with cardiology. He c/o intermittent chest discomfort. He reports that this wakes him up at night. ? GERD. Will send pantoprazole. Pt did report these symptoms to his tire buster (Oct. cardiac cath performed, new stent placed). Will cont to monitor. Pt knows to go the ER with worsening symptoms. Dyslipidemia: Pt is currently taking rosuvastatin 40mg. Will add zetia 10mg. PFSH Medical History Diverticulosis Diabetes Anxiety Dyslipidemia CAD (coronary artery disease) Surgical History Hx of colonoscopy Stented coronary artery History of eye surgery H/O heart artery stent Family History Father CVD (cardiovascular disease) Cancer of prostate Mother CVD (cardiovascular disease) Breast cancer Brother Testicular cancer Paternal Uncle Substance use disorder Social History Housing: House Alcohol intake: current Alcohol intake frequency: a few times a month Patient Tobacco Use Status: Current everyday Tobacco user Tobacco use type: Cigarette Cigarettes Per Day: 10 e-Cigarette/Vaping Use: Never Used Second Hand Smoke Exposure: No service: No Current occupational status: employed Current occupation: [employer] Current occupational exposures/hazards: No Cognitive needs: No Hearing needs: No Vision needs: Yes Questionnaire PHQ-9 Over the last 2 weeks, how often have you been bothered by any of the following problems? 1. Little interest or pleasure in doing things: not at all 2. Feeling down, depressed, or hopeless: not at all 3. Trouble falling or staying asleep, or sleeping too much: not at all 4. Feeling tired or having little energy: not at all 5. Poor appetite or overeating: not at all 6. Feeling bad about yourself - or that you are a failure or have let yourself or your family down: not at all 7. Trouble concentrating on things, such as reading the newspaper or watching television: not at all 8. Moving or speaking so slowly that other people could have noticed. Or the opposite - being so fidgety or restless that you have been moving around a lot more than usual: not at all 9. Thoughts that you would be better off or of hurting yourself in some way: not at all Total score: 0 Depression Screening Interpretation: Negative Depression Screening Done: Yes 02187 - PHQ-9 Billing: Yes Source: Developed by Drs. Ivan Mackey, Marcia Brewer, Niranjan Herbert and colleagues, with an educational margarito from [employer]. Thrive Questionnaire Date Thrive assessed: 09/13/23 I am a: Patient What is your living situation today?: I have a steady place to live Within the past 12 months, did the food you bought not last and you didn't have the money to get more?: Never true Within the past 12 months, did you worry whether your food would run out before you got money to buy more?: Never true Do you have trouble paying for medicines?: No Do you have trouble getting transportation to medical appointments?: No Do you have trouble paying your heating and electricity bill?: No Do you have trouble taking care of your child, family member or friend?: No Do you have trouble with day-to-day activities such as bathing, preparing meals, shopping, managing finances, etc.?: No Are you currently unemployed and looking for a job?: No Are you interested in more education?: No THRIVE Score: 0 AUDIT C Alcohol Use Questionnaire (AUDIT-C) 1. How often do you have a drink containing alcohol?: 2-4 times a month 2. How many drinks containing alcohol do you have on a typical day when you are drinking?: 5 or 6 3. How often do you have six or more drinks on one occasion?: Less than monthly Total Score: 5 PATRICK-7 AMB Questionnaire PATRICK-7 Date PATRICK - 7 assessed: 09/13/23 Feeling nervous, anxious, or on edge: 0 = Not at all Not being able to stop or control worryin = Not at all Worrying too much about different things: 0 = Not at all Trouble relaxin = Not at all Being so restless that it is hard to sit still: 0 = Not at all Becoming easily annoyed or irritable: 0 = Not at all Feeling afraid as if something awful might happen: 0 = Not at all Total PATRICK-7 score (0-4 normal; 5-9 mild; 10-14 moderate; 15-21 severe): 0 Source: Developed by Drs. Ivan Mackey, Marcia Brewer, Niranjan Herbert and colleagues, with an educational margarito from [employer]. PATRICK-7 Assessment Billing PATRICK-7 Assessment Tool: PATRICK-7 Assessment 19457 Review of Systems Const Denies chills and Denies fever(s) Eyes Denies blurry vision ENT Denies vertigo, Denies dizziness and Denies sore throat Card Reports chest pain at rest, Denies chest pain with activity, Denies diaphoresis, Denies dyspnea and Denies dyspnea on exertion Resp Denies cough, Denies dyspnea, Denies dyspnea on exertion and Denies wheezing GI Denies abdominal pain, Denies melena, Denies hematochezia, Denies constipation, Denies diarrhea and Denies loose stools Denies hematuria Musc Denies numbness and Denies tingling Skin/Breast Denies lesions Neuro Denies vertigo, Denies dizziness, Denies numbness and Denies tingling Psych Denies anxiety, Denies depression, Denies homicidal ideation, Denies suicidal ideation and Denies other (substance abuse) Aller/Immun Denies wheezing Physical exam (Primary Care) Vital Signs: Last Vital Signs Pulse 66 09/13/23 15:57 BP 120/76 09/13/23 15:57 Pulse Ox 98 09/13/23 15:57 Oxygen Delivery Method Room Air 09/13/23 15:57 BMI result Body Mass Index 31.3 Tobacco/Smoking Status: Tobacco use Status Tobacco use date assessed 09/13/23 09/13/23 16:03 Patient Tobacco Use Status Current everyday Tobacco 09/13/23 15:58 Tobacco use type Cigarette 09/13/23 15:58 e-Cigarette/Vaping Use Never Used 09/13/23 15:58 PHQ-9: PHQ-9 Score PHQ-9: Total score 0 09/13/23 17:38 Depression Screening Interpretation: Negative Thrive Assessment: Date of Thrive Assessment Date Thrive assessed 09/13/23 09/13/23 16:57 Const General: cooperative Nutritional Appearance: obese Orientation/consciousness: patient oriented x3 HENMT Head: Yes normal to inspection, Yes normocephalic and Yes atraumatic Ears: TM's normal bilaterally Eyes General: appearance normal, both eyes and all related structures Alignment and Position: alignment normal and position normal Neck Neck: Yes normal visual inspection and Yes no lymphadenopathy Thyroid: Thyroid normal Resp Effort & Inspection: normal respiratory effort Auscultation: clear to auscultation bilaterally Cardio Rate: regular rate Rhythm: regular rhythm Heart sounds: S1 normal heart sound present, S2 normal heart sound present and no murmurs GI Palpation (GI): Soft to palpation and nontender Auscultation: normal bowel sounds Male General Exam: Yes normal external exam Penis: normal penis Scrotum: scrotum normal, testes descended bilaterally and no inguinal hernias Testes: no testicular mass Skin Rashes: no rashes Neuro General: patient oriented x3, moves all extremities, no focal motor deficits and deep tendon reflexes 2+ bilaterally Romberg Test: Negative Extrem Other: bilat feet: + sensation with use of monofilament Psych Appearance: grossly normal Mental Status: mental status grossly normal Speech and movement: Normal speech and movement present Affect: normal affect Attitude: cooperative Thought process: Normal thought process present Thought content: Normal thought content present Insight: Good insight present (Psych) Judgement: Good judgement present (Psych) Assessment and Plan Assessment & Plan (1) Diabetes: Code(s): E11.9 - Type 2 diabetes mellitus without complications (2) Obesity: Code(s): E66.9 - Obesity, unspecified Plan: educated on importance of weight loss. Plan The patient agreed to the use of a medical claims representative for this encounter. Scribed for SUZY Butt by Anna Bustamante medical claims representative, on 09/13/2023 at 16:10 EST. Orders: Orders Comprehensive [place]. Panel Fast Today E11.9 - Type 2 diabetes mellitus without complications UA CC w/rflx Micro + Cult Today E11.9 - Type 2 diabetes mellitus without complications Lipid Panel Today E11.9 - Type 2 diabetes mellitus without complications Hemoglobin A1c Today E11.9 - Type 2 diabetes mellitus without complications Complete Blood Count Auto Diff Today E11.9 - Type 2 diabetes mellitus without complications TSH reflex Free T4 Today E11.9 - Type 2 diabetes mellitus without complications Medications: New ezetimibe 10 mg PO DAILY 90 tabs 0RF pantoprazole 20 mg PO DAILY 90 tabs 0RF 90 days Changed From isosorbide mononitrate ER 30 mg PO DAILY 90 tabs 1RF 90 days To isosorbide mononitrate ER 60 mg PO DAILY Discontinued tadalafil (Cialis) Discontinued Reason: Patient Refused 5 mg PO DAILY 90 tabs 1RF 90 days E11.9 - Type 2 diabetes mellitus without complications Coding Level of Care Code Est Pt Prev Care 40-64y(29978) Diagnoses Diabetes E11.9 Obesity E66.9 Additional Codes PATRICK-7 Assessment Billing - PATRICK-7 Assessment Tool: PATRICK-7 Assessment 11416 ([id number])
[2023-09-13 15:57] VITALS: BP 120/76; PULSE 66; O2SAT 98; BMI 31.3
== END 2023-09-13 17:00 | disposition home or self-care (01) ==
PROVIDERS: PCP Nurse Practitioner Family; Visit Provider Nurse Practitioner Family
DX: Z00.00 Encounter for general adult medical examination without abnormal findings (principal); E11.9 Type 2 diabetes mellitus without complications; E66.9 Obesity, unspecified; Z68.31 Body mass index [BMI] 31.0-31.9, adult
CPT/HCPCS: 99396

== ENCOUNTER 2023-11-02 11:09 | Outpatient (REF) | payer BC, SELFPAY ==
[2023-11-02 13:18] LABS: Appearance Urine Clear; Color Urine Yellow; Glucose Urine UA Negative (Negative); Leukocyte Esterase Urine Negative (Negative); Nitrite Urine Negative (Negative); PH 5.5 (5.0-9.0); Specific Gravity - Urine 1.025 (1.005-1.025); Urine Blood Negative (Negative); Urine Ketones Negative (Negative); Urine Protein Negative (Neg-Trace)
[2023-11-02 13:20] LABS: MANUAL DIFF FLAG NO
[2023-11-02 13:21] LABS: Bacteria Urine None Seen (None Seen); Hyaline Casts Urine 0-2 /LPF (0-2); RBC Urine 0-2 /HPF (0-2); Squamous Epithelial Cell Urine 0-2 /HPF (0-2); WBC Urine 0-5 /HPF (0-5)
[2023-11-02 13:26] LABS: Basophils Percent Auto 0.3 % (0-2); Eosinophils Absolute Auto 0.1 X10*3/uL (0.0-0.4); Eosinophils Percent Auto 1.1 % (0-4); Hematocrit 42.6 % (42.0-52.0); Hemoglobin 14.8 g/dl (14.0-18.0); Imm Gran Abs Auto 0.02 X10*3/uL (0.00-0.03); Imm Gran Pct Auto 0.3 % (0.0-0.4); Lymphocytes Absolute Auto 2.3 X10*3/uL (1.2-4.9); Lymphocytes Percent Auto 32.6 % (20-40); Mean Corpuscular HGB Conc 34.7 g/dl (31.0-36.0); Mean Corpuscular Hemoglobin 32.1 pg (27.0-33.0); Mean Corpuscular Volume 92.4 fL (80.0-98.0); Mean Platelet Volume 10.5 fL (9.4-12.4); Monocytes Absolute Auto 0.5 X10*3/uL (0.1-1.2); Neutrophils Absolute Auto 4.1 x10*3/uL (2.0-8.3); Neutrophils Percent Auto 58.7 % (45-73); Platelet Count 216 X10*3/uL (160-400); Red Blood Count 4.61 X10*6/uL (4.60-5.80)
[2023-11-02 13:51] LABS: Alanine Aminotransferase 34 U/L (0-40); Albumin Level 4.5 g/dL (3.5-5.0); Alkaline Phosphatase 73 U/L (39-117); Anion Gap 12 (12-20); Aspartate Amino Transferase 20 U/L (5-37); Bilirubin Total 0.9 mg/dL (0.0-1.0); Blood Urea Nitrogen 15 mg/dL (9-16); Calcium 9.2 mg/dL (8.4-10.2); Carbon Dioxide 28 mmol/L (22-29); Chloride 105 mmol/L (96-108); Cholesterol 113 mg/dL (<200); Estimated Glomerular Filt Rate > 60; Glucose Fasting 147 mg/dL (60-99); HDL Cholesterol 43 mg/dL (>40); LDL Cholesterol Calculated 40 mg/dL (<100); Potassium 4.2 mmol/L (3.3-5.1); Sodium 141 mmol/L (135-145); Total Protein 7.2 g/dL (6.5-8.0); Triglycerides 153 mg/dL (<150)
[2023-11-02 14:04] LABS: Estimated Average Glucose 140 mg/dL; Hemoglobin A1c % 6.5 % (<6.0)
[2023-11-02 14:14] LABS: Microalbum/Creatinine Ratio Ur 28.9 ug/mg cr (<30); Protein/Creatinine Ratio, Ur 0.08 (<0.2); Total Protein Urine Random 17 mg/dL (<12)
[2023-11-07 16:13] LABS: Testosterone, Free 68.6 pg/mL (35.0-155.0); Testosterone, Total 265 ng/dL (250-1100)
== END 2023-11-02 11:10 | disposition home or self-care (01) ==
LOC: HO.HMGCLDS 11:09
PROVIDERS: PCP Nurse Practitioner Family; Referring Provider Urology; Visit Provider Student in an Organized Health Care Education/Training Program
DX: Z00.00 Encounter for general adult medical examination without abnormal findings (principal); E11.9 Type 2 diabetes mellitus without complications; N52.9 Male erectile dysfunction, unspecified; R80.8 Other proteinuria
CPT/HCPCS: 36415; 80053; 80061; 81001; 81003; 82043; 82570; 83036; 84156; 84402; 84403; 84443; 85025

== ENCOUNTER 2023-11-22 11:36 | Outpatient (AMB) | payer BC, SELFPAY ==
--- NOTE | 2023-11-22 11:38 | A.OFFVIS_ITS ---
Intake Visit Reasons: Low testosterone Intake Note: Patient presents today for a follow up on: Low Testosterone Meds- None Allergies to Antibiotic- No Known Allergies Blood Thinner- Aspirin Health Counselor Required: No Accompanied by: Self / Same As Patient Allergies No Known Allergies Allergy (Verified 11/22/23 15:43) HPI Comments Details: Pablito is a 48 year old male who is here for evaluation due to low testosterone. CoMorbidities - Diabetes. Pt states low energy. Labs reviewed - 11/02/23 - Total testosterone- 265, Free testosterone 68.6 Discussed testosterone replacement. PSA screening. Discussed will monitor HCT during testosterone therapy Plan- Androgel, Labs ordered. [facility] Medical History Diverticulosis Diabetes Anxiety Dyslipidemia CAD (coronary artery disease) Surgical History Hx of colonoscopy Stented coronary artery History of eye surgery H/O heart artery stent Family History Father CVD (cardiovascular disease) Cancer of prostate Mother CVD (cardiovascular disease) Breast cancer Brother Testicular cancer Paternal Uncle Substance use disorder Social History Housing: House Alcohol intake: current Alcohol intake frequency: a few times a month Patient Tobacco Use Status: Current everyday Tobacco user Tobacco use type: Cigarette Cigarettes Per Day: 10 e-Cigarette/Vaping Use: Never Used Second Hand Smoke Exposure: No service: No Current occupational status: employed Current occupation: [employer] Current occupational exposures/hazards: No Cognitive needs: No Hearing needs: No Vision needs: Yes Review of Systems Const All systems reviewed & are unremarkable except as noted in HPI and below Reports no additional complaints Eyes Reports no additional complaints ENT Reports no additional complaints Card Reports no additional complaints Resp Reports no additional complaints GI Reports no additional complaints Reports as per HPI Musc Reports no additional complaints Skin/Breast Reports system reviewed and no additional complaints, except as documented Neuro Reports no additional complaints Psych Reports no additional complaints Endo Reports no additional complaints Saravanan/Lymph Reports no additional complaints Aller/Immun Reports no additional complaints Physical Exam Const General: healthy appearing, no acute distress and well developed Orientation/consciousness: patient oriented x3 HEENT Head: Yes normocephalic and Yes atraumatic Eyes Conjunctivae: conjunctivae normal Neck Neck: Yes normal visual inspection Chest Chest palpation & inspection: normal inspection of the chest Resp Effort & Inspection: normal respiratory effort Cardio Rate: regular rate GI Inspection: Yes normal to inspection Palpation (GI): Soft to palpation Skin General skin exam: no rashes or lesions noted Neuro General: patient oriented x3 Extrem General: No pedal edema Psych Appearance: grossly normal Affect: normal affect Results AMB Urinalysis, Automated UA Leukoctes 0 Willam/uL Last Edit by Ute Linomaria [facility] on 11/22/23 11 :51 UA Nitrite Negative [facility] on 11/22/23 11: 51 UA Urobilinogen 0.2 mg/dL Last [facility] on 4 11:51 UA Protein 15 mg/dL Last Edit by Ute Linomaria [facility] on 11/22/23 11:5 1 UA pH 6.0 [facility] on 11/22/23 11:51 UA Blood 0 Andrea/uL Last Edit [facility] on 11/22/23 11:51 UA Specific [place] 1.030 Last Edit [facility] on 11:51 UA Ketone Negative Last [facility] on 11/22/23 11:5 1 UA Bilirubin 0 mg/dL Last Edit [facility] on 11/22/23 11: 51 UA Glucose 0 mg/dL Last Edit [facility] on 11/22/23 11:51 Results Reviewed Results Reviewed: Laboratory Last Values Urine pH (Auto) 6.0 11/22/23 11:45 Specific [place] (Auto) 1.030 11/22/23 11:45 Urine Protein (Auto) 15 mg/dL 11/22/23 11:45 Glucose (UA)(Auto) 0 mg/dL 11/22/23 11:45 Urine Ketones (Auto) Negative 11/22/23 11:45 Urine Blood (Auto) 0 Andrea/uL 11/22/23 11:45 Urine Nitrite (Auto) Negative 11/22/23 11:45 Urine Bilirubin (Auto) 0 mg/dL 11/22/23 11:45 Urine Urobilinogen (Auto) 0.2 mg/dL 11/22/23 11:45 Leukocyte Esterase (Auto) 0 Willam/uL 11/22/23 11:45 Assessment & Plan Assessment & Plan (1) Low testosterone: Code(s): R79.89 - Other specified abnormal findings of blood chemistry Category: Medical (2) Screening PSA (prostate specific antigen): Code(s): Z12.5 - Encounter for screening for malignant neoplasm of prostate Category: Medical Plan Androgel, Labs ordered. Orders: Orders Testosterone, Free/Total 7 Weeks R79.89 - Other specified abnormal findings of blood chemistry Hematocrit 7 Weeks Z79.890 - Hormone replacement therapy AMB Urinalysis Automated 11/22/23 R33.9 - Retention of urine, unspecified Glucose Fasting 7 Weeks R79.89 - Other specified abnormal findings of blood chemistry PSA,Total (Free>4and<10) 7 Weeks Z12.5 - Encounter for screening for malignant neoplasm of prostate Medications: New testosterone (AndroGel) apply 1 pump amount over max area of ONE upper arm and shoulder 20.25 mg topical DAILY 75 grams 0RF Patient Instructions: The patient had an opportunity to ask questions regarding treatment plan. The patient expressed understanding and agreement with the above treatment plan. The patient is aware they should contact our office by phone for worsening of their current condition or the appearance of new symptoms. Compliance is encouraged with any medications and followup testing that is ordered. It is a privilege to be allowed the opportunity to participate in the urologic care of your patient. If you have any questions or concerns regarding treatment for the above conditions please do not hesitate to contact me. The office telephone contact is [phone]. This note is constructed in part using voice recognition software. While every effort has been made to ensure accuracy air bag buffer errors may have been included. Yours sincerely, Angelika Dove MD Coding Level of Care Code New Pt Level 4 (61283) Diagnoses Low testosterone R79.89 Screening PSA (prostate specific antigen) Z12.5
== END 2023-11-22 12:17 | disposition home or self-care (01) ==
PROVIDERS: PCP Nurse Practitioner Family; Visit Provider Urology
DX: R79.89 Other specified abnormal findings of blood chemistry (principal); Z12.5 Encounter for screening for malignant neoplasm of prostate
CPT/HCPCS: 99204

== ENCOUNTER → 2023-11-22 11:36 | Outpatient (BNVA) | payer BC, SELFPAY | PROVIDERS: PCP Nurse Practitioner Family; Visit Provider Urology | DX: E29.1 Testicular hypofunction (principal); R33.9 Retention of urine, unspecified | CPT/HCPCS: 81003 ==

== ENCOUNTER 2023-11-22 15:35 | Outpatient (AMB) | payer BC, SELFPAY ==
--- NOTE | 2023-11-22 15:42 | MHC.PC.OV ---
Vital Signs 11/22/23 15:43 Height 5 ft 7 in Weight 206 lb BMI 32.3 BP 118/68 Blood Pressure Location Rt brachial Position Sitting Pulse 71 Pulse Source Pulse Oximeter Pulse Oximetry (%) 97 Oxygen Delivery Method Room Air Intake Visit Reasons: 3 Month F/U Intake Note: Patient here for diabetes f/u. Allergies No Known Allergies Allergy (Verified 11/22/23 15:43) Tobacco use date assessed: 09/13/23 Dental Screening Dental Screen Date: 09/13/23 HPI 3 Month F/U HPI Details Pt is a diabetic, on an JEREMIAH and a statin. Last A1C was 6.5. Microalbumin is up to date, he is seeing nephrology. Denies polyuria, polydipsia, and neuropathy. Pt denies any signs and symptoms of hypoglycemia and does know how to correct it. PFS Medical History Diverticulosis Diabetes Anxiety Dyslipidemia CAD (coronary artery disease) Surgical History Hx of colonoscopy Stented coronary artery History of eye surgery H/O heart artery stent Family History Father CVD (cardiovascular disease) Cancer of prostate Mother CVD (cardiovascular disease) Breast cancer Brother Testicular cancer Paternal Uncle Substance use disorder Social History Housing: House Alcohol intake: current Alcohol intake frequency: a few times a month Patient Tobacco Use Status: Current everyday Tobacco user Tobacco use type: Cigarette Cigarettes Per Day: 10 e-Cigarette/Vaping Use: Never Used Second Hand Smoke Exposure: No service: No Current occupational status: employed Current occupation: [employer] Current occupational exposures/hazards: No Cognitive needs: No Hearing needs: No Vision needs: Yes Questionnaire Thrive Questionnaire Date Thrive assessed: 09/13/23 PATRICK-7 AMB Questionnaire PATRICK-7 Date PATRICK - 7 assessed: 09/13/23 Source: Developed by Drs. Ivan Mackey, Marcia Brewer, Niranjan Herbert and colleagues, with an educational margarito from [employer]. Review of Systems Const Reports as per HPI Physical exam (Primary Care) Vital Signs: Last Vital Signs Pulse 71 11/22/23 15:43 BP 118/68 11/22/23 15:43 Pulse Ox 97 11/22/23 15:43 Oxygen Delivery Method Room Air 11/22/23 15:43 BMI result Body Mass Index 32.3 Tobacco/Smoking Status: Tobacco use Status Tobacco use date assessed 09/13/23 11/22/23 15:45 Patient Tobacco Use Status Current everyday Tobacco 11/22/23 15:45 Tobacco use type Cigarette 11/22/23 15:45 e-Cigarette/Vaping Use Never Used 11/22/23 15:45 Thrive Assessment: Date of Thrive Assessment Date Thrive assessed 09/13/23 11/22/23 15:45 Const General: cooperative Nutritional Appearance: obese Orientation/consciousness: patient oriented x3 Resp Effort & Inspection: normal respiratory effort Auscultation: clear to auscultation bilaterally Cardio Rate: regular rate Rhythm: regular rhythm Heart sounds: S1 normal heart sound present and S2 normal heart sound present Neuro General: patient oriented x3 Extrem Other: bilat feet: + sensation with use of monofilament, feet intact Psych Appearance: grossly normal Mental Status: mental status grossly normal Speech and movement: Normal speech and movement present Affect: normal affect Attitude: cooperative Thought process: Normal thought process present Thought content: Normal thought content present Insight: Good insight present (Psych) Judgement: Good judgement present (Psych) Results AMB Urinalysis, Automated UA Leukoctes 0 Willam/uL Last Edit by Ute Lino CMA on 11/22/23 11:51 UA Nitrite Negative Last Edit by Ute Lino CMA on 11/22/23 11:51 UA Urobilinogen 0.2 mg/dL Last Edit by Ute Lino CMA on 11/22/23 11:51 UA Protein 15 mg/dL Last Edit by Ute Lino CMA on 11/22/23 11:51 UA pH 6.0 Last Edit by Ute Lino CMA on 11/22/23 11:51 UA Blood 0 Andrea/uL Last Edit by Ute Lino CMA on 11/22/23 11:51 UA Specific [place] 1.030 Last Edit by Ute Lino CMA on 11/22/23 11:51 UA Ketone Negative Last Edit by Ute Lino CMA on 11/22/23 11:51 UA Bilirubin 0 mg/dL Last Edit by Ute Lino CMA on 11/22/23 11:51 UA Glucose 0 mg/dL Last Edit by Ute Lino CMA on 11/22/23 11:51 Assessment and Plan Assessment & Plan (1) Diabetes: Code(s): E11.9 - Type 2 diabetes mellitus without complications Plan: continue same med routine, recommend weight loss (2) Microalbuminuria: Code(s): R80.9 - Proteinuria, unspecified Plan: sees nephrology Plan The patient agreed to the use of a medical imaging specialist for this encounter. Scribed for SUZY Butt by Anna Bustamante medical imaging specialist, on 11/22/2023 at 16:15 EST. Coding Level of Care Code Est Pt Level 3 (49866) Diagnoses Diabetes E11.9 Microalbuminuria R80.9
[2023-11-22 15:43] VITALS: BP 118/68; PULSE 71; O2SAT 97; BMI 32.3
== END 2023-11-22 16:37 | disposition home or self-care (01) ==
PROVIDERS: PCP Nurse Practitioner Family; Visit Provider Nurse Practitioner Family
DX: E11.9 Type 2 diabetes mellitus without complications (principal); R80.9 Proteinuria, unspecified
CPT/HCPCS: 99213

== ENCOUNTER 2024-02-10 06:23 | Outpatient (REF) | payer BC, SELFPAY ==
[2024-02-10 10:27] LABS: Appearance Urine Clear; Color Urine Yellow; Glucose Urine UA >=1000 mg/dL (Negative); Leukocyte Esterase Urine Negative (Negative); Nitrite Urine Negative (Negative); PH 6.5 (5.0-9.0); Specific Gravity - Urine >= 1.030 (1.005-1.025); UMIC TRIGGER UACC YES; Urine Blood Negative (Negative); Urine Ketones Trace mg/dL (Negative); Urine Protein Trace mg/dL (Neg-Trace)
[2024-02-10 10:36] LABS: Hematocrit 45.6 % (42.0-52.0)
[2024-02-10 10:38] LABS: Bacteria Urine None Seen (None Seen); Hyaline Casts Urine 0-2 /LPF (0-2); RBC Urine 0-2 /HPF (0-2); Squamous Epithelial Cell Urine 0-2 /HPF (0-2); WBC Urine 0-5 /HPF (0-5)
[2024-02-10 10:43] LABS: Glucose Fasting 270 mg/dL (60-99)
[2024-02-10 11:02] LABS: PSA,Total (Free>4and<10) 0.22 ng/mL (0.00-4.00)
[2024-02-22 02:18] LABS: Testosterone, Free 42.8 pg/mL (35.0-155.0); Testosterone, Total 213 ng/dL (250-1100)
== END 2024-02-10 06:24 | disposition home or self-care (01) ==
LOC: HO.HMGCLDS 06:23
PROVIDERS: PCP Nurse Practitioner Family; Referring Provider Urology; Visit Provider Nurse Practitioner Family
DX: R79.89 Other specified abnormal findings of blood chemistry (principal); Z79.890 Hormone replacement therapy; Z12.5 Encounter for screening for malignant neoplasm of prostate; E11.9 Type 2 diabetes mellitus without complications
CPT/HCPCS: 36415; 81001; 82947; 84153; 84402; 84403; 85014